=== PATIENT | female | born 1960 | race Caucasian/White ===

== ENCOUNTER 2017-05-22 23:21 | Inpatient (IN) | payer MEDICARE ==
[~2017-05-22] VITALS: Ht 167.6 cm; Wt 41.3 kg
[2017-05-22 23:30] VITALS: BP 139/87; PULSE 93; RESP 20; O2SAT 98
[2017-05-23] VITALS (13 sets, daily range): BP systolic 119–145; BP diastolic 57–82; PULSE 75–92; RESP 16–20; TEMP 96.6–99.1; O2SAT 75–97
[2017-05-23] MEDS ORDERED: ZOCO20TA PO (00:23)
[2017-05-23] MEDS ORDERED: MORP1TAB25 PO (00:23)
[2017-05-23] MEDS ORDERED: COLA100C5 PO (00:23)
[2017-05-23] MEDS ORDERED: DICY10CA12 PO (00:23)
[2017-05-23] MEDS ORDERED: CALC1TAB87 PO (00:23)
[2017-05-23] MEDS ORDERED: AMLO10 PO (00:23)
[2017-05-23] MEDS ORDERED: ZOLO100T PO (00:23)
[2017-05-23] MEDS ORDERED: GENT0.1C TOPICAL (00:23)
[2017-05-23] MEDS ORDERED: ASCO500T PO (00:23)
[2017-05-23] MEDS ORDERED: LACTTAB8 PO (00:23)
[2017-05-23] MEDS ORDERED: KLOR20TA3 PO (00:23)
[2017-05-23] MEDS ORDERED: MULTTAB67 PO (00:23)
[2017-05-23] MEDS ORDERED: NORC5TAB PO (00:23)
[2017-05-23] MEDS ORDERED: LISI-515 PO (00:23)
[2017-05-23] MEDS ORDERED: PROT40TA PO (00:23)
[2017-05-23] MEDS ORDERED: WELLTAB39 PO (00:23)
[2017-05-23] MEDS ORDERED: FERR325T18 PO (00:23)
[2017-05-23] MEDS ORDERED: XANA2TAB2 PO (00:23)
[2017-05-23] MEDS ORDERED: TRAZ1TAB14 PO (00:23)
[2017-05-23 00:48] LABS: AUTOMATED NEUTROPHIL # 2.2 TH/MM3 (1.8-7.7); BASOPHIL % 0.2 % (0.0-2.0); EOSINOPHIL % 0.2 % (0.0-4.0); HEMATOCRIT 25.1 % (35.0-46.0); HEMO FLAGS DIFF FINAL; LYMPH % 29.6 % (9.0-44.0); MEAN CELL VOLUME 75.8 FL (80.0-100.0); MEAN CORPUSCULAR HEMOGLOBIN 23.8 PG (27.0-34.0); MEAN CORPUSCULAR HGB CONC 31.4 % (32.0-36.0); MONO % 3.4 % (0.0-8.0); NEUT % 66.6 % (16.0-70.0); PLATELET COUNT 348 TH/MM3 (150-450); WHITE BLOOD COUNT 3.4 TH/MM3 (4.0-11.0)
[2017-05-23 00:53] LABS: APTT (PATIENT) 27.2 SEC (24.3-30.1); INTERNATIONAL NORMALIZED RATIO 1.1 RATIO; PROTHROMBIN TIME - PATIENT 10.7 SEC (9.8-11.6)
[2017-05-23 01:09] LABS: ANION GAP 4 MEQ/L (5-15); AST (GOT) 15 U/L (15-37); BICARBONATE 31.8 MEQ/L (21.0-32.0); BLOOD UREA NITROGEN 17 MG/DL (7-18); CHLORIDE 100 MEQ/L (98-107); GLOMERULAR FILTRATION RATE 208 ML/MIN (>89); POTASSIUM 4.9 MEQ/L (3.5-5.1); SODIUM (NA) 136 MEQ/L (136-145)
--- NOTE | 2017-05-23 01:10 | PD ---
HPI Chief Complaint: Abnormal Results Time Seen by Provider: 01:04 Travel History International Travel<30 days: No Contact w/Intl Traveler<30days: No Traveled to known affect area: No History of Present Illness HPI 56-year-old female sent to the emergency department from care home for evaluation and possible transfusion. Patient reportedly had a hemoglobin of 6.8 at the nursing facility prior to being transferred to the emergency department. Patient has had stroke and is bedbound due to right-sided hemiplegia. Patient denies any black or tarry stools. Patient is on no blood thinning agents according to patient. 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) Neurologic: Yes (Hemiparesis/hemiplegia to Right side) Integumentary: Yes (Pressure ulcers to R elbow, R ankle, and sacral region) Tetanus Vaccination: Unknown ?: Not Menopausal: Yes Past Surgical History Section: Yes Hysterectomy: Yes Other Surgery: Yes (Fibroid cyst removed) Social History Alcohol Use: No Tobacco Use: No Substance Use: No Allergies-Medications (Allergen,Severity, Reaction): Coded Allergies: No Known Allergies (Verified Allergy, Unknown, 05/22/17) Reported Meds & Prescriptions Reported Meds & Active Scripts Active Reported Gentamicin Topical 0.1% Cream 1 Applic TOPICAL DAILY Apply to affected area(s) Xanax (Alprazolam) 2 Mg Tab 2 Mg PO Q8H PRN [place] (Hydrocodone-Acetaminophen) 5 Mg-325 Mg Tab 1 Tab PO Q6H PRN Morphine ER (Morphine Sulfate) 30 Mg Tab 30 Mg PO Q8H Lactobacillus Acidophilus 1 Billion Cell Tab 1 Tab PO TIDAC Zoloft (Sertraline HCl) 100 Mg Tab 100 Mg PO BID Lisinopril 20 Mg Tab 20 Mg PO BID Klor-Con M20 (Potassium Chloride Microencaps) 20 Meq Tab 20 Meq PO Q12HR Dicyclomine (Dicyclomine HCl) 10 Mg Cap 10 Mg PO BID PRN Colace (Docusate Sodium) 100 Mg Capsule 1 Tab PO BID PRN Ascorbic Acid 500 Mg Tab 500 Mg PO BID Zocor (Simvastatin) 20 Mg Tab 20 Mg PO DAILY Wellbutrin Xl 24 HR (Bupropion HCl) 300 Mg Tab 300 Mg PO DAILY Trazodone (Trazodone HCl) 150 Mg Tablet 150 Mg PO HS Protonix (Pantoprazole Sodium) 40 Mg Tab 40 Mg PO DAILY Norvasc (Amlodipine Besylate) 10 Mg Tab 10 Mg PO DAILY Multiple Vitamin 1 Tab 1 Tab PO DAILY Ferrous Sulfate 325 Mg (65 Mg Iron) Tablet 325 Mg PO DAILY Calcium 600 with Vitamin D (Calcium Carbonate-Cholecalciferol) 600-400 mg-Unit Tab 1 Tab PO DAILY Review of Systems Except as stated in HPI: all other systems reviewed are Neg Physical Exam Narrative GENERAL: Thin elderly appearing female May she had in no acute distress no respiratory distress SKIN: Warm and dry. HEAD: Normocephalic. EYES: No scleral icterus. No injection or drainage. NECK: Supple, trachea midline. No JVD or lymphadenopathy. CARDIOVASCULAR: Regular rate and rhythm without murmurs, gallops, or rubs. RESPIRATORY: Breath sounds equal bilaterally. No accessory muscle use. GASTROINTESTINAL: Abdomen soft, non-tender, nondistended. MUSCULOSKELETAL: No cyanosis, or edema. BACK: Nontender without obvious deformity. No CVA tenderness. Data Data Last Documented VS Vital Signs Date Time Temp Pulse Resp B/P (MAP) Pulse Ox O2 Delivery O2 Flow Rate FiO2 05/23/17 00:01 99.0 05/22/17 23:42 99 Nasal Cannula 2.00 05/22/17 23:30 93 20 139/87 (104) Orders Orders Complete Blood Count With Diff (05/23/17 00:33) Comprehensive Metabolic Panel (05/23/17 00:33) Prothrombin Time / Inr (Pt) (05/23/17 00:33) Act Partial Throm Time (Ptt) (05/23/17 00:33) Ecg Monitoring (05/23/17 00:33) Oximetry (05/23/17 00:33) Oxygen Administration (05/23/17 00:33) Iv Access Insert/Monitor (05/23/17 00:33) Type And Screen (05/23/17 00:33) Red Blood Cells (Rbc) (05/23/17 00:05) Admit Order (Ed Use Only) (05/23/17 ) Vital Signs (Adult) Q4H (05/23/17 01:49) Activity Bed Rest (05/23/17 01:49) Notify Dr: Other (05/23/17 01:49) Labs Laboratory Tests Test 05/23/17 00:05 White Blood Count 3.4 TH/MM3 Red Blood Count 3.30 MIL/MM3 Hemoglobin 7.9 GM/DL Hematocrit 25.1 % Mean Corpuscular Volume 75.8 FL Mean Corpuscular Hemoglobin 23.8 PG Mean Corpuscular Hemoglobin Concent 31.4 % Red Cell Distribution Width 19.0 % Platelet Count 348 TH/MM3 Mean Platelet Volume 7.3 FL Neutrophils (%) (Auto) 66.6 % Lymphocytes (%) (Auto) 29.6 % Monocytes (%) (Auto) 3.4 % Eosinophils (%) (Auto) 0.2 % Basophils (%) (Auto) 0.2 % Neutrophils # (Auto) 2.2 TH/MM3 Lymphocytes # (Auto) 1.0 TH/MM3 Monocytes # (Auto) 0.1 TH/MM3 Eosinophils # (Auto) 0.0 TH/MM3 Basophils # (Auto) 0.0 TH/MM3 CBC Comment DIFF FINAL Differential Comment Prothrombin Time 10.7 SEC Prothromb Time International Ratio 1.1 RATIO Activated Partial Thromboplast Time 27.2 SEC Blood Urea Nitrogen 17 MG/DL Creatinine 0.33 MG/DL Random Glucose 89 MG/DL Total Protein 6.8 GM/DL Albumin 2.3 GM/DL Calcium Level 8.9 MG/DL Alkaline Phosphatase 91 U/L Aspartate Amino Transf (AST/SGOT) 15 U/L Alanine Aminotransferase (ALT/SGPT) 12 U/L Total Bilirubin 0.2 MG/DL Sodium Level 136 MEQ/L Potassium Level 4.9 MEQ/L Chloride Level 100 MEQ/L Carbon Dioxide Level 31.8 MEQ/L Anion Gap 4 MEQ/L Estimat Glomerular Filtration Rate 208 ML/MIN [facility] Medical Decision Making Medical Screen Exam Complete: Yes Emergency Medical Condition: Yes Medical Record Reviewed: Yes Interpretation(s) CBC & BMP Diagram 05/23/17 00:05 Total Protein 6.8, Albumin 2.3 L, Calcium Level 8.9, Alkaline Phosphatase 91, Aspartate Amino Transf (AST/SGOT) 15, Alanine Aminotransferase (ALT/SGPT) 12, Total Bilirubin 0.2 Vital Signs Date Time Temp Pulse Resp B/P (MAP) Pulse Ox O2 Delivery O2 Flow Rate FiO2 12/15/17 00:01 99.0 05/22/17 23:42 99 Nasal Cannula 2.00 05/22/17 23:30 93 20 139/87 (104) 98 Differential Diagnosis Anemia anemia of chronic disease GI bleed Narrative Course IV access obtained specimens collected and sent for resulting Hemoglobin 7.9 labs discussed with [place] for Dr Ocampo --knows patient well will obs for repeat hgb Physician Communication Physician Communication call placed to Dr Benedict service --discussed with [place] --knows patient --obs to Dr Ocampo Diagnosis Primary Impression: Anemia Palmira Garcia MD May 23, 2017 01:10
[2017-05-23 01:12] LABS: ALKALINE PHOSPHATASE 91 U/L (45-117); ALT (GPT) 12 U/L (10-53); TOTAL BILIRUBIN ADULT 0.2 MG/DL (0.2-1.0)
[2017-05-23] MEDS ORDERED: ACETAMINOPHEN 325 MG TAB PO PRN (02:00)
[2017-05-23] MEDS ORDERED: NALOXONE HCL 0.4 MG/ML AMP IV PUSH PRN (02:00)
[2017-05-23] MEDS ORDERED: ONDANSETRON HCL 4 MG/2 ML VIAL IVP PRN (02:00)
[2017-05-23] MEDS ORDERED: MAGNESIUM HYDROXIDE SUSP 30 ML CUP PO PRN (02:00)
[2017-05-23] MEDS ORDERED: DICYCLOMINE HCL 10 MG CAP PO PRN (02:00)
[2017-05-23] MEDS ORDERED: SODIUM CHLORIDE 0.9% FLUSH 10 ML FLUSH IV FLUSH PRN (02:00)
[2017-05-23] MEDS ORDERED: BISACODYL 10 MG SUPP RECTAL PRN (02:00)
[2017-05-23] MEDS ORDERED: LACTULOSE SYRUP 20 GM/30 ML CUP PO PRN (02:00)
[2017-05-23] MEDS ORDERED: DOCUSATE SODIUM 100 MG CAP PO PRN (02:00)
[2017-05-23] MEDS ORDERED: SENNOSIDES 8.6 MG TAB PO PRN (02:00)
[2017-05-23] MEDS: MORPHINE SULFATE 30 MG CONTROLLED RELEASE TAB PO SCH ×3 (06:27→21:36)
[2017-05-23 07:41] LABS: HEMATOCRIT 21.8 % (35.0-46.0); MEAN CELL VOLUME 75.4 FL (80.0-100.0); MEAN CORPUSCULAR HEMOGLOBIN 24.6 PG (27.0-34.0); MEAN CORPUSCULAR HGB CONC 32.6 % (32.0-36.0); PLATELET COUNT 305 TH/MM3 (150-450); RED BLOOD COUNT 2.89 MIL/MM3 (4.00-5.30); RED CELL DISTRIBUTION WIDTH 18.4 % (11.6-17.2); REVIEW FLAG FINAL; WHITE BLOOD COUNT 2.9 TH/MM3 (4.0-11.0)
[2017-05-23 08:05] LABS: FERRITIN 801 NG/ML (8-252); TRANSFERRIN IRON PROFILE 97 MG/DL (200-360)
[2017-05-23] MEDS: GENTAMICIN SULFATE 0.1% CREAM 15 GM TOPICAL SCH (09:00)
[2017-05-23] MEDS: ASCORBIC ACID 500 MG TAB PO SCH ×2 (09:58→21:35)
[2017-05-23] MEDS: FERROUS SULFATE 325 MG (65 MG ELEMENTAL IRON) TAB PO SCH (09:58)
[2017-05-23] MEDS: POTASSIUM CHLORIDE 20 MEQ CONTROLLED RELEASE TAB PO SCH ×2 (09:59→21:34)
[2017-05-23] MEDS: DOCUSATE SODIUM 50 MG/SENNA 8.6 MG TAB PO SCH ×2 (09:59→21:35)
[2017-05-23] MEDS: SERTRALINE HCL 100 MG TAB PO SCH ×2 (09:59→21:33)
[2017-05-23] MEDS: buPROPion HCL 150 MG SUSTAINED RELEASE TAB PO SCH (10:04)
[2017-05-23] MEDS: LISINOPRIL 20 MG TAB PO SCH ×2 (10:05→21:34)
[2017-05-23] MEDS: MULTIVITAMIN TAB PO SCH (10:05)
[2017-05-23] MEDS: PANTOPRAZOLE SOD 40 MG DELAYED RELEASE TAB PO SCH (10:05)
[2017-05-23] MEDS: SODIUM CHLORIDE 0.9% FLUSH 10 ML FLUSH IV FLUSH SCH ×2 (10:06→21:00)
[2017-05-23] MEDS: LACTOBACILLUS ACIDOPHILUS TAB PO SCH ×3 (10:06→20:25)
[2017-05-23] MEDS: CALCIUM/VITAMIN D 250 MG/125 U TAB PO SCH (10:07)
[2017-05-23] MEDS ORDERED: SODIUM CHLOR 0.9% 250 ML INJ 250 ML IV ONE (12:00)
--- NOTE | 2017-05-23 12:11 | HHI.HP ---
History of Present Illness Service Medicine Primary Care Physician Unknown Admission Diagnosis anemia Diagnoses: (1) Anemia History of Present Illness 56-year-old female [facility] possible transfusion. Patient reportedly had a hemoglobin of 6.8 at the nursing facility prior to being transferred to the emergency department. Patient has had stroke and is bedbound due to right-sided hemiplegia. Patient denies any black or tarry stools. Patient is on no blood thinning agents. Patient was also admitted in April for anemia and had work per GI and hematology. Recommendation from hematology is to transfuse as needed. Review of Systems Constitutional: COMPLAINS OF: Fatigue Respiratory: DENIES: Cough, Wheezing, Sputum production, Shortness of breath Cardiovascular: DENIES: Chest pain, Palpitations, Dyspnea on Exertion, Lower Extremity Edema Gastrointestinal: DENIES: Abdominal pain, Black stools, Bloody stools, Constipation Psychiatric: COMPLAINS OF: Depression Past Family Social History Allergies: Coded Allergies: No Known Allergies (Verified Allergy, Unknown, 05/22/17) Past Medical History CVA, [place], chronic anemia, lupus, porphyria and back and neck pain Past Surgical History coccyx surgery c section hernia repair hysterectomy Active Ordered Medications Current Medications Medications (Trade) Dose Ordered Sig/Lynda Route Start Time Stop Time Status Last Admin (NS Flush) 2 ml UNSCH PRN IV FLUSH 05/23/17 02:00 (NS Flush) 2 ml BID IV FLUSH 05/23/17 09:00 05/23/17 10:06 (Tylenol) 650 mg Q4H PRN PO 05/23/17 02:00 (Zofran Inj) 4 mg Q6H PRN IVP 05/23/17 02:00 (Narcan Inj) 0.4 mg UNSCH PRN IV PUSH 05/23/17 02:00 ([place]-Colace) 1 tab BID PO 05/23/17 09:00 05/23/17 09:59 (Milk Of Magnesia Liq) 30 ml Q12H PRN PO 05/23/17 02:00 (Senokot) 17.2 mg Q12H PRN PO 05/23/17 02:00 (Dulcolax Supp) 10 mg DAILY PRN RECTAL 05/23/17 02:00 (Lactulose Liq) 30 ml DAILY PRN PO 05/23/17 02:00 (Xanax) 2 mg Q8H PRN PO 05/23/17 02:00 (Norvasc) 10 mg DAILY PO 05/23/17 09:00 05/23/17 10:04 (Vitamin C) 500 mg BID PO 05/23/17 09:00 05/23/17 09:58 (Wellbutrin Sr) 300 mg DAILY PO 05/23/17 09:00 05/23/17 10:04 (Oscal-D 250-125) 1 mg DAILY PO 05/23/17 09:00 05/23/17 10:07 (Bentyl) 10 mg BID PRN PO 05/23/17 02:00 (Colace) 100 mg BID PRN PO 05/23/17 02:00 (Ferrous Sulfate) 325 mg DAILY PO 05/23/17 09:00 05/23/17 09:58 (Gentamicin 0.1% Cream) 1 applic DAILY TOPICAL 05/23/17 09:00 ([place] 5-325 Mg) 1 tab Q6H PRN PO 05/23/17 02:00 (Lactinex) 1 tab TIDAC PO 05/23/17 08:00 05/23/17 10:06 (Prinivil) 20 mg BID PO 05/23/17 09:00 05/23/17 10:05 (Oramorph Sr) 30 mg Q8HR PO 05/23/17 06:00 05/23/17 06:27 (Protonix) 40 mg DAILY PO 05/23/17 09:00 05/23/17 10:05 (KCl) 20 meq Q12HR PO 05/23/17 09:00 05/23/17 09:59 (Zoloft) 100 mg BID PO 05/23/17 09:00 05/23/17 09:59 (Theragran) 1 tab DAILY PO 05/23/17 09:00 05/23/17 10:05 (Pravachol) 40 mg HS PO 05/23/17 21:00 (Desyrel) 150 mg HS PO 05/23/17 21:00 Sodium Chloride 250 ml @ 15 mls/hr ONCE ONCE IV 05/23/17 12:00 05/24/17 04:39 UNV (Lasix Inj) 20 mg ONCE ONCE IV PUSH 05/23/17 12:00 05/23/17 12:01 UNV Social History [facility] Physical Exam Vital Signs Vital Signs Date Time Temp Pulse Resp B/P (MAP) Pulse Ox O2 Delivery O2 Flow Rate FiO2 05/23/17 11:07 96.7 86 16 121/57 (78) 96 05/23/17 07:28 96.6 84 20 119/66 (83) 95 05/23/17 05:50 98.9 92 18 131/82 (98) 95 05/23/17 00:01 99.0 05/22/17 23:42 99 Nasal Cannula 2.00 05/22/17 23:30 93 20 139/87 (104) 98 Physical Exam GENERAL: alert and cooperative SKIN: Warm and dry. Wound right ankle HEAD: Normocephalic. EYES: No scleral icterus. No injection or drainage. NECK: Supple, trachea midline. No JVD or lymphadenopathy. CARDIOVASCULAR: Regular rate and rhythm without murmurs, gallops, or rubs. RESPIRATORY: Breath sounds equal bilaterally. No accessory muscle use. GASTROINTESTINAL: Abdomen soft, non-tender, nondistended. MUSCULOSKELETAL: No cyanosis, or edema. BACK: Nontender without obvious deformity. No CVA tenderness. Laboratory Laboratory Tests Test 05/23/17 00:05 05/23/17 06:18 05/23/17 06:48 White Blood Count 3.4 2.9 Red Blood Count 3.30 2.89 Hemoglobin 7.9 7.1 Hematocrit 25.1 21.8 Mean Corpuscular Volume 75.8 75.4 Mean Corpuscular Hemoglobin 23.8 24.6 Mean Corpuscular Hemoglobin Concent 31.4 32.6 Red Cell Distribution Width 19.0 18.4 Platelet Count 348 305 Mean Platelet Volume 7.3 7.3 Neutrophils (%) (Auto) 66.6 Lymphocytes (%) (Auto) 29.6 Monocytes (%) (Auto) 3.4 Eosinophils (%) (Auto) 0.2 Basophils (%) (Auto) 0.2 Neutrophils # (Auto) 2.2 Lymphocytes # (Auto) 1.0 Monocytes # (Auto) 0.1 Eosinophils # (Auto) 0.0 Basophils # (Auto) 0.0 CBC Comment DIFF FINAL Differential Comment Prothrombin Time 10.7 Prothromb Time International Ratio 1.1 Activated Partial Thromboplast Time 27.2 Blood Urea Nitrogen 17 Creatinine 0.33 Random Glucose 89 Total Protein 6.8 Albumin 2.3 Calcium Level 8.9 Alkaline Phosphatase 91 Aspartate Amino Transf (AST/SGOT) 15 Alanine Aminotransferase (ALT/SGPT) 12 Total Bilirubin 0.2 Sodium Level 136 Potassium Level 4.9 Chloride Level 100 Carbon Dioxide Level 31.8 Anion Gap 4 Estimat Glomerular Filtration Rate 208 Haptoglobin 245 Iron Level 12 Total Iron Binding Capacity 136 Percent Iron Saturation 8.8 Ferritin 801 Vitamin B12 Level 310 Folate 10.0 Reticulocyte Count 1.0 Absolute Reticulocyte Count 28.0 Result Diagram: 05/23/17 0648 05/23/17 0005 Caprini VTE Risk Assessment Caprini VTE Risk Assessment: Mod/High Risk (score >= 2) Caprini Risk Assessment Model Point Value = 1 Point Value = 2 Point Value = 3 Point Value = 5 Age 41-60 Minor surgery BMI > 25 kg/m2 Swollen legs Varicose veins or History of unexplained or recurrent spontaneous Oral contraceptives or hormone replacement Sepsis (< 1 month) Serious lung disease, including pneumonia (< 1 month) Abnormal pulmonary function Acute myocardial infarction Congestive heart failure (< 1 month) History of inflammatory bowel disease Medical patient at bed rest Age 61-74 Arthroscopic surgery Major open surgery (> 45 min) Laparoscopic surgery (> 45 min) Malignancy Confined to bed (> 72 hours) Immobilizing plaster cast Central venous access Age >= 75 History of VTE Family history of VTE Factor V Leiden Prothrombin [id number] Lupus anticoagulant Anticardiolipin antibodies Elevated serum homocysteine Heparin-induced thrombocytopenia Other congenital or acquired thrombophilia Stroke (< 1 month) Elective arthroplasty Hip, pelvis, or leg fracture Acute spinal cord injury (< 1 month) Prophylaxis Regimen Total Risk Factor Score Risk Level Prophylaxis Regimen 0-1 Low Early ambulation 2 Moderate Order ONE of the following: *Sequential Compression Device (SCD) *Heparin 5000 units SQ BID 3-4 Higher Order ONE of the following medications: *Heparin 5000 units SQ TID *Enoxaparin/Lovenox 40 mg SQ daily (WT < 150 kg, CrCl > 30 mL/min) *Enoxaparin/Lovenox 30 mg SQ daily (WT < 150 kg, CrCl > 10-29 mL/min) *Enoxaparin/Lovenox 30 mg SQ BID (WT < 150 kg, CrCl > 30 mL/min) AND/OR *Sequential Compression Device (SCD) 5 or more Highest Order ONE of the following medications: *Heparin 5000 units SQ TID (Preferred with Epidurals) *Enoxaparin/Lovenox 40 mg SQ daily (WT < 150 kg, CrCl > 30 mL/min) *Enoxaparin/Lovenox 30 mg SQ daily (WT < 150 kg, CrCl > 10-29 mL/min) *Enoxaparin/Lovenox 30 mg SQ BID (WT < 150 kg, CrCl > 30 mL/min) AND *Sequential Compression Device (SCD) Assessment and Plan Problem List: (1) Anemia ICD Codes: D64.9 - Anemia, unspecified Status: Acute (2) HLD (hyperlipidemia) ICD Codes: E78.5 - Hyperlipidemia, unspecified (3) Depression ICD Codes: F32.9 - Major depressive disorder, single episode, unspecified Assessment and Plan 05/23/17 Anemia: HGB at [facility] re[facility] at 6.8. At hospital 7.9 and this morning 7.1 will transfuse 2 units of PRBC's. Has had bone marrow biopsy in past. Recommendations is to transfuse PRBC as needed HTN: Continue lisinopril blood pressure well controlled HLD: Continue Zocor Depression: continue Zoloft, trazodone, and Wellbutrin GERD; Continue protonix plan for labs in AM and [facility] May 23, 2017 12:11
[2017-05-23] MEDS ORDERED: FUROSEMIDE 20 MG/2 ML VIAL IV PUSH ONE (14:00)
[2017-05-23] MEDS: ALPRAZolam 1 MG TAB PO PRN (15:37)
--- NOTE | 2017-05-23 16:05 | PD.WCN.NOT ---
Wound Consult Description: Patient seen for evaluation of pressure ulcer to coccyx from [facility]. 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 Please change dressing daily and apply skin prep to periwound before applying ABD and securing with tape. 2. Cleanse healing stage 4 pressure injury to R ankle with normal saline and pat dry. Apply Optifoam gentle dressing to over wound and change every 3 days or PRN if saturated or dislodged 3. Continue to turn patient every 2 hours and PRN comfort and to offload pressure from sacral area. 4. Patient may need multipodus boot for R foot to keep foot from externally rotating and placing pressure on R ankle wound. 5. Please refer patient to out patient wound care center for follow up of stage 4 pressure injuries 6. If patient is admitted please obtain WAVE bed. Additional Information: Patient seen on H pod CDU around 1500 for wound management of coccyx and R ankle areas.Patient turned to the R side with the assistance of Gina HEALY CDU H pod and designer writer, Removed adhesive foam dressing in place to reveal wound to sacrococcygeal area. Wound presents with ~20% yellow adherent slough, ~20% pink tissue, ~30% muscle tissue, ~20% facia, 10% bone Cleansed wound with normal saline and pat dry. Wound has an oval shape with well defined steep wound margins that are unattached. Epibole is noted between 12 and 6 o'clock. Wound measures 4.2cm x 2 cm x 1cm Undermining is assessed as circumferential, deepest at 3 o'clock measuring 2.8cm. Presence of facia, bone and mucles that is visible in wound bed indicates stage IV pressure injury.Wound is present on admission, patient came from the [facility] per RN.Wound drainage is moderate and sero-sanguinous, without odor. Periwound presents with blanchable moisture related erythema.Packed wound with Calcium Alginate (Maxorb II) and covered wound with ABD pad secured with paper tape. Skin prep applied to periwound and before securing dressing to skin with paper tape.Repositioned patient for wound assessment of R ankle wound. Removed dressing in place to R lateral ankle to reveal stage IV pressure injury to R lateral malleolus. Wound presents with yellow slough, ~80% pink tissue and ~20% white tissue at the base. Wound measures ~1 cm x ~0.6cm x ~0.2cm. Wound drainage is scant and sero-sanguinous without odor. Periwound is unremarkable. Wound margins are steep, well defined and attached. Cleansed wound with normal saline and pat dry. dry 4x4 gauze pad over wound until supplies can be obtained Positioned patient to L side with pillow in place for support. Pillow in place under feet to offload pressure from heels and ankle.Wound care recommendations are noted above. Antonieta Murcia CRN May 23, 2017 16:05
[2017-05-23] MEDS: COLLAGENASE OINT 30 GM TUBE TOPICAL SCH (16:45)
[2017-05-23] MEDS: traZODone HCL 50 MG TAB PO SCH (21:34)
[2017-05-23] MEDS: PRAVASTATIN SOD 40 MG TAB PO SCH (21:34)
[2017-05-24] VITALS: BP 143/74; PULSE 79; RESP 16; TEMP 97.9
[2017-05-24 02:20] VITALS: BP 147/82; PULSE 84; RESP 16; TEMP 98.9; O2SAT 93
[2017-05-24 03:22] VITALS: BP 146/90; PULSE 88; RESP 18; TEMP 99.1; O2SAT 94
[2017-05-24] MEDS: MORPHINE SULFATE 30 MG CONTROLLED RELEASE TAB PO SCH ×3 (06:19→20:54)
[2017-05-24] MEDS: ALPRAZolam 1 MG TAB PO PRN ×2 (06:24→20:53)
[2017-05-24 07:18] LABS: AUTOMATED NEUTROPHIL # 3.4 TH/MM3 (1.8-7.7); BASOPHIL % 0.3 % (0.0-2.0); EOSINOPHIL % 0.3 % (0.0-4.0); HEMATOCRIT 35.3 % (35.0-46.0); HEMO FLAGS DIFF FINAL; LYMPH % 20.4 % (9.0-44.0); LYMPHOCYTE # 0.9 TH/MM3 (1.0-4.8); MEAN CORPUSCULAR HEMOGLOBIN 25.3 PG (27.0-34.0); MEAN CORPUSCULAR HGB CONC 32.9 % (32.0-36.0); MONO % 5.8 % (0.0-8.0); NEUT % 73.2 % (16.0-70.0); PLATELET COUNT 306 TH/MM3 (150-450); RED BLOOD COUNT 4.59 MIL/MM3 (4.00-5.30); RED CELL DISTRIBUTION WIDTH 16.8 % (11.6-17.2); WHITE BLOOD COUNT 4.7 TH/MM3 (4.0-11.0)
[2017-05-24 07:54] LABS: ALKALINE PHOSPHATASE 89 U/L (45-117); ALT (GPT) 9 U/L (10-53); ANION GAP 8 MEQ/L (5-15); AST (GOT) 16 U/L (15-37); BICARBONATE 28.2 MEQ/L (21.0-32.0); BLOOD UREA NITROGEN 12 MG/DL (7-18); CHLORIDE 99 MEQ/L (98-107); GLOMERULAR FILTRATION RATE 188 ML/MIN (>89); POTASSIUM 4.1 MEQ/L (3.5-5.1); SODIUM (NA) 135 MEQ/L (136-145); TOTAL BILIRUBIN ADULT 0.4 MG/DL (0.2-1.0)
[2017-05-24 08:17] VITALS: BP 175/90; PULSE 93; RESP 18; TEMP 99.8; O2SAT 96
[2017-05-24] MEDS: GENTAMICIN SULFATE 0.1% CREAM 15 GM TOPICAL SCH (09:00)
--- NOTE | 2017-05-24 09:11 | HHI.PR ---
Subjective Remarks pt has been transfused hgb now 11 still weak and a fall risk lives alone will need pt eval and rx for gait stability and dc to snf for further rx Objective Vital Signs Date Time Temp Pulse Resp B/P (MAP) Pulse Ox O2 Delivery O2 Flow Rate FiO2 05/24/17 08:17 99.8 93 18 175/90 (118) 96 05/24/17 03:22 99.1 88 18 146/90 (108) 94 05/24/17 02:20 98.9 84 16 147/82 93 05/24/17 00:00 97.9 79 16 143/74 05/23/17 23:41 97.8 82 18 142/74 97 05/23/17 22:42 15 05/23/17 20:11 97.6 87 16 138/70 85 05/23/17 19:56 99.1 85 17 138/70 95 05/23/17 18:06 75 16 145/72 75 05/23/17 16:54 76 16 134/70 05/23/17 16:02 97.0 80 16 137/66 (89) 95 05/23/17 15:43 96.7 83 18 133/67 94 05/23/17 15:19 97.8 87 18 134/66 96 05/23/17 14:46 97.3 86 16 130/74 95 05/23/17 11:07 96.7 86 16 121/57 (78) 96 I/O 05/23/17 05/23/17 05/23/17 05/24/17 05/24/17 05/24/17 07:00 15:00 23:00 07:00 15:00 23:00 Intake Total 2560 ml Output Total 350 ml 1500 ml Balance -350 ml 1060 ml Intake Oral 320 ml IV Total 1575 ml Packed Cells 400 ml Blood Product IV Normal Saline Flush 265 ml Output Urine Total 350 ml 1500 ml Result Diagram: 05/24/17 0650 05/24/17 0650 Imaging Inpatient Medications Acetaminophen (Tylenol) 650 mg Q4H PRN PO TEMP > 100.4; Start 05/23/17 at 02: 00 Acetaminophen/ Hydrocodone Bitart ([place] 5-325 Mg) 1 tab Q6H PRN PO PAIN 1-10 ; Start 05/23/17 at 02:00 Alprazolam (Xanax) 2 mg Q8H PRN PO ANXIETY Last administered on 05/24/17 06: 24; Start 05/23/17 at 02:00 Amlodipine Besylate (Norvasc) 10 mg DAILY PO Last administered on 05/23/17 10 :04; Start 05/23/17 at 09:00 Ascorbic Acid (Vitamin C) 500 mg BID PO Last administered on 05/23/17 21:35; Start 05/23/17 at 09:00 Bisacodyl (Dulcolax Supp) 10 mg DAILY PRN RECTAL SEVERE CONSITIPATION; Start 05/23/17 at 02:00 Bupropion HCl (Wellbutrin Sr) 300 mg DAILY PO Last administered on 05/23/17 10:04; Start 05/23/17 at 09:00 Calcium/Vitamin D (Oscal-D 250-125) 1 mg DAILY PO Last administered on 10:07; Start 05/23/17 at 09:00 Collagenase (Santyl Oint) 1 applic DAILY TOPICAL ; Start 05/23/17 at 16:45 Dicyclomine HCl (Bentyl) 10 mg BID PRN PO Bowel Management; Start 05/23/17 at 02:00 Docusate Sodium (Colace) 100 mg BID PRN PO CONSTIPATION; Start 05/23/17 at 02: 00 Ferrous Sulfate (Ferrous Sulfate) 325 mg DAILY PO Last administered on 09:58; Start 05/23/17 at 09:00 Furosemide (Lasix Inj) 20 mg ONCE ONCE IV PUSH Last administered on 19:30; Start 05/23/17 at 14:00; Stop 05/23/17 at 14:01; Status DC Gentamicin Sulfate (Gentamicin 0.1% Cream) 1 applic DAILY TOPICAL ; Start 05/23 at 09:00 Lactobacillus Acidophilus (Lactinex) 1 tab TIDAC PO Last administered on 20:25; Start 05/23/17 at 08:00 Lactulose (Lactulose Liq) 30 ml DAILY PRN PO SEVERE CONSITIPATION; Start 05/23 at 02:00 Lisinopril (Prinivil) 20 mg BID PO Last administered on 05/23/17 21:34; Start 05/23/17 at 09:00 Magnesium Hydroxide (Milk Of Magnesia Liq) 30 ml Q12H PRN PO Mild constipation ; Start 05/23/17 at 02:00 Morphine Sulfate (Oramorph Sr) 30 mg Q8HR PO Last administered on 05/24/17 06 :19; Start 05/23/17 at 06:00 Multivitamins (Theragran) 1 tab DAILY PO Last administered on 05/23/17 10:05 ; Start 05/23/17 at 09:00 Naloxone HCl (Narcan Inj) 0.4 mg UNSCH PRN IV PUSH SEE LABEL COMMENTS; Start 05/23/17 at 02:00 Ondansetron HCl (Zofran Inj) 4 mg Q6H PRN IVP NAUSEA OR VOMITING; Start at 02:00 Pantoprazole Sodium (Protonix) 40 mg DAILY PO Last administered on 05/23/17 10:05; Start 05/23/17 at 09:00 Potassium Chloride (KCl) 20 meq Q12HR PO Last administered on 05/23/17 21:34 ; Start 05/23/17 at 09:00 Pravastatin Sodium (Pravachol) 40 mg HS PO Last administered on 05/23/17 21: 34; Start 05/23/17 at 21:00 Senna/Docusate Sodium (Santa-Colace) 1 tab BID PO Last administered on 21:35; Start 05/23/17 at 09:00 Sennosides (Senokot) 17.2 mg Q12H PRN PO Moderate constipation; Start at 02:00 Sertraline HCl (Zoloft) 100 mg BID PO Last administered on 05/23/17 21:33; Start 05/23/17 at 09:00 Sodium Chloride 250 ml @ 15 mls/hr ONCE ONCE IV Last administered on 15:42; Start 05/23/17 at 12:00; Stop 05/24/17 at 04:39; Status DC Sodium Chloride (NS Flush) 2 ml BID IV FLUSH Last administered on 05/23/17 10 :06; Start 05/23/17 at 09:00 Trazodone HCl (Desyrel) 150 mg HS PO Last administered on 05/23/17 21:34; Start 05/23/17 at 21:00 Objective Remarks GENERALfrail white female patient. SKIN: Warm and dry. HEAD: Normocephalic. EYES: No scleral icterus. No injection or drainage. NECK: Supple, trachea midline. No JVD or lymphadenopathy. CARDIOVASCULAR: Regular rate and rhythm without murmurs, gallops, or rubs. RESPIRATORY: Breath sounds equal bilaterally. No accessory muscle use. GASTROINTESTINAL: Abdomen soft, non-tender, nondistended. EXTREMITIES: No cyanosis, or edema.r hemiparesis present NEUROLOGICAL: Awake, alert, and oriented x 3. Non-focal. Medications and IVs Inpatient Medications Acetaminophen (Tylenol) 650 mg Q4H PRN PO TEMP > 100.4; Start 05/23/17 at 02: 00 Acetaminophen/ Hydrocodone Bitart ([place] 5-325 Mg) 1 tab Q6H PRN PO PAIN 1-10 ; Start 05/23/17 at 02:00 Alprazolam (Xanax) 2 mg Q8H PRN PO ANXIETY Last administered on 05/24/17 06: 24; Start 05/23/17 at 02:00 Amlodipine Besylate (Norvasc) 10 mg DAILY PO Last administered on 05/23/17 10 :04; Start 05/23/17 at 09:00 Ascorbic Acid (Vitamin C) 500 mg BID PO Last administered on 05/23/17 21:35; Start 05/23/17 at 09:00 Bisacodyl (Dulcolax Supp) 10 mg DAILY PRN RECTAL SEVERE CONSITIPATION; Start 05/23/17 at 02:00 Bupropion HCl (Wellbutrin Sr) 300 mg DAILY PO Last administered on 05/23/17 10:04; Start 05/23/17 at 09:00 Calcium/Vitamin D (Oscal-D 250-125) 1 mg DAILY PO Last administered on 10:07; Start 05/23/17 at 09:00 Collagenase (Santyl Oint) 1 applic DAILY TOPICAL ; Start 05/23/17 at 16:45 Dicyclomine HCl (Bentyl) 10 mg BID PRN PO Bowel Management; Start 05/23/17 at 02:00 Docusate Sodium (Colace) 100 mg BID PRN PO CONSTIPATION; Start 05/23/17 at 02: 00 Ferrous Sulfate (Ferrous Sulfate) 325 mg DAILY PO Last administered on 09:58; Start 05/23/17 at 09:00 Furosemide (Lasix Inj) 20 mg ONCE ONCE IV PUSH Last administered on 19:30; Start 05/23/17 at 14:00; Stop 05/23/17 at 14:01; Status DC Gentamicin Sulfate (Gentamicin 0.1% Cream) 1 applic DAILY TOPICAL ; Start 05/23 at 09:00 Lactobacillus Acidophilus (Lactinex) 1 tab TIDAC PO Last administered on 20:25; Start 05/23/17 at 08:00 Lactulose (Lactulose Liq) 30 ml DAILY PRN PO SEVERE CONSITIPATION; Start 05/23 at 02:00 Lisinopril (Prinivil) 20 mg BID PO Last administered on 05/23/17 21:34; Start 05/23/17 at 09:00 Magnesium Hydroxide (Milk Of Magnesia Liq) 30 ml Q12H PRN PO Mild constipation ; Start 05/23/17 at 02:00 Morphine Sulfate (Oramorph Sr) 30 mg Q8HR PO Last administered on 05/24/17 06 :19; Start 05/23/17 at 06:00 Multivitamins (Theragran) 1 tab DAILY PO Last administered on 05/23/17 10:05 ; Start 05/23/17 at 09:00 Naloxone HCl (Narcan Inj) 0.4 mg UNSCH PRN IV PUSH SEE LABEL COMMENTS; Start 05/23/17 at 02:00 Ondansetron HCl (Zofran Inj) 4 mg Q6H PRN IVP NAUSEA OR VOMITING; Start at 02:00 Pantoprazole Sodium (Protonix) 40 mg DAILY PO Last administered on 05/23/17 10:05; Start 05/23/17 at 09:00 Potassium Chloride (KCl) 20 meq Q12HR PO Last administered on 05/23/17 21:34 ; Start 05/23/17 at 09:00 Pravastatin Sodium (Pravachol) 40 mg HS PO Last administered on 05/23/17 21: 34; Start 05/23/17 at 21:00 Senna/Docusate Sodium (Santa-Colace) 1 tab BID PO Last administered on 21:35; Start 05/23/17 at 09:00 Sennosides (Senokot) 17.2 mg Q12H PRN PO Moderate constipation; Start at 02:00 Sertraline HCl (Zoloft) 100 mg BID PO Last administered on 05/23/17 21:33; Start 05/23/17 at 09:00 Sodium Chloride 250 ml @ 15 mls/hr ONCE ONCE IV Last administered on 15:42; Start 05/23/17 at 12:00; Stop 05/24/17 at 04:39; Status DC Sodium Chloride (NS Flush) 2 ml BID IV FLUSH Last administered on 05/23/17 10 :06; Start 05/23/17 at 09:00 Trazodone HCl (Desyrel) 150 mg HS PO Last administered on 05/23/17 21:34; Start 05/23/17 at 21:00 Assessment and Plan Problem List: (1) Debility ICD Codes: R53.81 - Other malaise Plan: pt eval and rx with SNF placement (2) Anemia ICD Codes: D64.9 - Anemia, unspecified Status: Acute Plan: transfuse as needed Assessment and Plan debility anemia r hemiparesis pt eval and rx with snf placement Discussed Condition With patient DamarisFarhat Epi SOL May 24, 2017 09:11
[2017-05-24] MEDS: SERTRALINE HCL 100 MG TAB PO SCH ×2 (10:37→20:53)
[2017-05-24] MEDS: DOCUSATE SODIUM 50 MG/SENNA 8.6 MG TAB PO SCH ×2 (10:37→20:54)
[2017-05-24] MEDS: PANTOPRAZOLE SOD 40 MG DELAYED RELEASE TAB PO SCH (10:38)
[2017-05-24] MEDS: MULTIVITAMIN TAB PO SCH (10:38)
[2017-05-24] MEDS: FERROUS SULFATE 325 MG (65 MG ELEMENTAL IRON) TAB PO SCH (10:39)
[2017-05-24] MEDS: LISINOPRIL 20 MG TAB PO SCH ×2 (10:39→20:53)
[2017-05-24] MEDS: LACTOBACILLUS ACIDOPHILUS TAB PO SCH ×3 (10:39→18:12)
[2017-05-24] MEDS: buPROPion HCL 150 MG SUSTAINED RELEASE TAB PO SCH (10:39)
[2017-05-24] MEDS: ASCORBIC ACID 500 MG TAB PO SCH ×2 (10:40→20:54)
[2017-05-24] MEDS: CALCIUM/VITAMIN D 250 MG/125 U TAB PO SCH (10:40)
[2017-05-24] MEDS: POTASSIUM CHLORIDE 20 MEQ CONTROLLED RELEASE TAB PO SCH ×2 (10:40→20:54)
[2017-05-24] MEDS: COLLAGENASE OINT 30 GM TUBE TOPICAL SCH ×2 (10:42→12:37)
[2017-05-24 10:57] LABS: FREE T3 1.74 PG/ML (2.18-3.98)
[2017-05-24] MEDS: SODIUM CHLORIDE 0.9% FLUSH 10 ML FLUSH IV FLUSH SCH ×2 (14:47→20:53)
[2017-05-24 16:06] VITALS: BP 184/99; PULSE 93; RESP 24; TEMP 97.8; O2SAT 93
[2017-05-24 18:50] LABS: BACTERIA, URINE RARE /hpf; BLOOD, URINE MOD (NEG); COMMENT (UR) CULTURE INDICATED; CULTURE IF INDICATED CULTURE INDICATED; GLUCOSE,URINE NEG (NEG); KETONE, URINE NEG (NEG); MUCUS URINE FEW /lpf (OCC); NITRITE,URINE NEG (NEG); SQUAMOUS EPITHELIAL CELL URINE <1 /hpf (0-5); URINE COLOR YELLOW (YELLW/STRAW)
[2017-05-24 20:00] VITALS: BP 168/82; PULSE 91; RESP 22; TEMP 99.8; O2SAT 95
[2017-05-24] MEDS: PRAVASTATIN SOD 40 MG TAB PO SCH (20:53)
[2017-05-24] MEDS: traZODone HCL 50 MG TAB PO SCH (20:57)
[2017-05-25] VITALS: BP 124/70; PULSE 73; RESP 20; TEMP 98.8; O2SAT 97
[2017-05-25 04:21] VITALS: BP 131/74; PULSE 73; RESP 20; TEMP 98; O2SAT 96
[2017-05-25] MEDS: ALPRAZolam 1 MG TAB PO PRN ×2 (05:46→13:12)
[2017-05-25] MEDS: MORPHINE SULFATE 30 MG CONTROLLED RELEASE TAB PO SCH ×3 (05:46→21:10)
[2017-05-25 08:00] VITALS: BP 142/79; PULSE 84; RESP 20; TEMP 98.7; O2SAT 96
[2017-05-25] MEDS: DOCUSATE SODIUM 50 MG/SENNA 8.6 MG TAB PO SCH ×2 (09:00→21:08)
[2017-05-25] MEDS: FERROUS SULFATE 325 MG (65 MG ELEMENTAL IRON) TAB PO SCH (09:00)
--- NOTE | 2017-05-25 09:25 | HHI.PR ---
Subjective Remarks pt claims anxiety requesting more ativan will dc wellbutrin and bein paxil await PT eval Objective Vital Signs Date Time Temp Pulse Resp B/P (MAP) Pulse Ox O2 Delivery O2 Flow Rate FiO2 05/25/17 04:21 98.0 73 20 131/74 (93) 96 05/25/17 00:00 98.8 73 20 124/70 (88) 97 05/24/17 22:26 14 05/24/17 20:00 99.8 91 22 168/82 (110) 95 05/24/17 16:06 97.8 93 24 184/99 (127) 93 I/O 05/24/17 05/24/17 05/24/17 05/25/17 05/25/17 05/25/17 07:00 15:00 23:00 07:00 15:00 23:00 Intake Total 2560 ml 600 ml Output Total 1500 ml 600 ml Balance 1060 ml -600 ml 600 ml Intake Oral 320 ml 600 ml IV Total 1575 ml Packed Cells 400 ml Blood Product IV Normal Saline Flush 265 ml Output Urine Total 1500 ml 600 ml Result Diagram: 05/24/17 0650 05/24/17 0650 Objective Remarks GENERALfrail white female patient.claims anxiety SKIN: Warm and dry. HEAD: Normocephalic. EYES: No scleral icterus. No injection or drainage. NECK: Supple, trachea midline. No JVD or lymphadenopathy. CARDIOVASCULAR: Regular rate and rhythm without murmurs, gallops, or rubs. RESPIRATORY: Breath sounds equal bilaterally. No accessory muscle use. GASTROINTESTINAL: Abdomen soft, non-tender, nondistended. EXTREMITIES: No cyanosis, or edema.r hemiparesis present NEUROLOGICAL: Awake, alert, and oriented x 3. Non-focal. Medications and IVs Inpatient Medications Acetaminophen (Tylenol) 650 mg Q4H PRN PO TEMP > 100.4; Start 05/23/17 at 02: 00 Acetaminophen/ Hydrocodone Bitart ([place] 5-325 Mg) 1 tab Q6H PRN PO PAIN 1-10 ; Start 05/23/17 at 02:00 Alprazolam (Xanax) 2 mg Q8H PRN PO ANXIETY Last administered on 05/25/17t 05: 46; Start 05/23/17 at 02:00 Amlodipine Besylate (Norvasc) 10 mg DAILY PO Last administered on 05/24/17 10 :40; Start 05/23/17 at 09:00 Ascorbic Acid (Vitamin C) 500 mg BID PO Last administered on 05/24/17 20:54; Start 05/23/17 at 09:00 Bisacodyl (Dulcolax Supp) 10 mg DAILY PRN RECTAL SEVERE CONSITIPATION; Start 05/23/17 at 02:00 Bupropion HCl (Wellbutrin Sr) 300 mg DAILY PO Last administered on 05/24/17 10:39; Start 05/23/17 at 09:00 Calcium/Vitamin D (Oscal-D 250-125) 1 mg DAILY PO Last administered on 10:40; Start 05/23/17 at 09:00 Collagenase (Santyl Oint) 1 applic DAILY TOPICAL Last administered on 12:37; Start 05/23/17 at 16:45 Dicyclomine HCl (Bentyl) 10 mg BID PRN PO Bowel Management; Start 05/23/17 at 02:00 Docusate Sodium (Colace) 100 mg BID PRN PO CONSTIPATION; Start 05/23/17 at 02: 00 Ferrous Sulfate (Ferrous Sulfate) 325 mg DAILY PO Last administered on 10:39; Start 05/23/17 at 09:00 Furosemide (Lasix Inj) 20 mg ONCE ONCE IV PUSH Last administered on 19:30; Start 05/23/17 at 14:00; Stop 05/23/17 at 14:01; Status DC Gentamicin Sulfate (Gentamicin 0.1% Cream) 1 applic DAILY TOPICAL ; Start 05/23 at 09:00 Lactobacillus Acidophilus (Lactinex) 1 tab TIDAC PO Last administered on 18:12; Start 05/23/17 at 08:00 Lactulose (Lactulose Liq) 30 ml DAILY PRN PO SEVERE CONSITIPATION; Start 05/23 at 02:00 Lisinopril (Prinivil) 20 mg BID PO Last administered on 05/24/17 20:53; Start 05/23/17 at 09:00 Magnesium Hydroxide (Milk Of Magnesia Liq) 30 ml Q12H PRN PO Mild constipation ; Start 05/23/17 at 02:00 Morphine Sulfate (Oramorph Sr) 30 mg Q8HR PO Last administered on 05/25/17 05 :46; Start 05/23/17 at 06:00 Multivitamins (Theragran) 1 tab DAILY PO Last administered on 05/24/17 10:38 ; Start 05/23/17 at 09:00 Naloxone HCl (Narcan Inj) 0.4 mg UNSCH PRN IV PUSH SEE LABEL COMMENTS; Start 05/23/17 at 02:00 Ondansetron HCl (Zofran Inj) 4 mg Q6H PRN IVP NAUSEA OR VOMITING; Start at 02:00 Pantoprazole Sodium (Protonix) 40 mg DAILY PO Last administered on 05/24/17 10:38; Start 05/23/17 at 09:00 Potassium Chloride (KCl) 20 meq Q12HR PO Last administered on 05/24/17 20:54 ; Start 05/23/17 at 09:00 Pravastatin Sodium (Pravachol) 40 mg HS PO Last administered on 05/24/17 20: 53; Start 05/23/17 at 21:00 Senna/Docusate Sodium (Santa-Colace) 1 tab BID PO Last administered on 20:54; Start 05/23/17 at 09:00 Sennosides (Senokot) 17.2 mg Q12H PRN PO Moderate constipation; Start at 02:00 Sertraline HCl (Zoloft) 100 mg BID PO Last administered on 05/24/17 20:53; Start 05/23/17 at 09:00 Sodium Chloride 250 ml @ 15 mls/hr ONCE ONCE IV Last administered on 15:42; Start 05/23/17 at 12:00; Stop 05/24/17 at 04:39; Status DC Sodium Chloride (NS Flush) 2 ml BID IV FLUSH Last administered on 05/24/17 20 :53; Start 05/23/17 at 09:00 Trazodone HCl (Desyrel) 150 mg HS PO Last administered on 05/24/17 20:57; Start 05/23/17 at 21:00 Assessment and Plan Problem List: (1) Debility ICD Codes: R53.81 - Other malaise Plan: pt eval and rx with SNF placement (2) Anemia ICD Codes: D64.9 - Anemia, unspecified Status: Acute Plan: transfuse as needed Assessment and Plan debility anemia r hemiparesis pt eval and rx with snf placement add paxil for anxiety dc Farhat [place] DO May 25, 2017 09:25
[2017-05-25 09:30] LABS: AUTOMATED NEUTROPHIL # 2.7 TH/MM3 (1.8-7.7); BASOPHIL % 0.3 % (0.0-2.0); EOSINOPHIL % 0.3 % (0.0-4.0); HEMATOCRIT 36.8 % (35.0-46.0); HEMO FLAGS DIFF FINAL; LYMPH % 27.8 % (9.0-44.0); LYMPHOCYTE # 1.2 TH/MM3 (1.0-4.8); MEAN CELL VOLUME 78.7 FL (80.0-100.0); MEAN CORPUSCULAR HEMOGLOBIN 26.1 PG (27.0-34.0); MEAN CORPUSCULAR HGB CONC 33.1 % (32.0-36.0); MONO % 6.1 % (0.0-8.0); NEUT % 65.5 % (16.0-70.0); PLATELET COUNT 269 TH/MM3 (150-450); RED BLOOD COUNT 4.68 MIL/MM3 (4.00-5.30); RED CELL DISTRIBUTION WIDTH 17.4 % (11.6-17.2); WHITE BLOOD COUNT 4.2 TH/MM3 (4.0-11.0)
[2017-05-25] MEDS ORDERED: PARoxetine 25 MG CONTROLLED RELEASE TAB PO ONE (09:30)
[2017-05-25 09:50] LABS: ANION GAP 9 MEQ/L (5-15); BICARBONATE 28.1 MEQ/L (21.0-32.0); BLOOD UREA NITROGEN 13 MG/DL (7-18); CHLORIDE 97 MEQ/L (98-107); GLOMERULAR FILTRATION RATE 208 ML/MIN (>89); POTASSIUM 4.1 MEQ/L (3.5-5.1); SODIUM (NA) 134 MEQ/L (136-145)
[2017-05-25 09:52] LABS: ALT (GPT) 12 U/L (10-53); AST (GOT) 15 U/L (15-37)
[2017-05-25 09:54] LABS: ALKALINE PHOSPHATASE 86 U/L (45-117); TOTAL BILIRUBIN ADULT 0.4 MG/DL (0.2-1.0)
[2017-05-25] MEDS: LISINOPRIL 20 MG TAB PO SCH ×2 (10:47→21:10)
[2017-05-25] MEDS: ASCORBIC ACID 500 MG TAB PO SCH ×2 (10:47→21:10)
[2017-05-25] MEDS: CALCIUM/VITAMIN D 250 MG/125 U TAB PO SCH (10:48)
[2017-05-25] MEDS: LACTOBACILLUS ACIDOPHILUS TAB PO SCH ×3 (10:48→16:21)
[2017-05-25] MEDS: PANTOPRAZOLE SOD 40 MG DELAYED RELEASE TAB PO SCH (10:48)
[2017-05-25] MEDS: POTASSIUM CHLORIDE 20 MEQ CONTROLLED RELEASE TAB PO SCH ×2 (10:48→21:00)
[2017-05-25] MEDS: MULTIVITAMIN TAB PO SCH (10:48)
[2017-05-25] MEDS: SODIUM CHLORIDE 0.9% FLUSH 10 ML FLUSH IV FLUSH SCH ×2 (10:49→21:08)
[2017-05-25] MEDS: ACETAMINOPHEN/HYDROcodone 325 MG/5 MG TAB PO PRN (11:49)
[2017-05-25] MEDS: THYROID 30 MG TAB PO SCH (11:50)
[2017-05-25 12:00] VITALS: BP 139/82; PULSE 80; RESP 20; TEMP 99; O2SAT 95
[2017-05-25] MEDS: GENTAMICIN SULFATE 0.1% CREAM 15 GM TOPICAL SCH (13:13)
[2017-05-25] MEDS: COLLAGENASE OINT 30 GM TUBE TOPICAL SCH (13:16)
[2017-05-25 15:37] VITALS: BP 131/78; PULSE 80; RESP 20; TEMP 98.8; O2SAT 95
[2017-05-25] MEDS: PRAVASTATIN SOD 40 MG TAB PO SCH (21:08)
[2017-05-25] MEDS: traZODone HCL 50 MG TAB PO SCH (21:10)
[2017-05-25 22:30] VITALS: BP 145/85; PULSE 84; RESP 21; TEMP 98.9; O2SAT 97
[2017-05-26] MEDS: ALPRAZolam 1 MG TAB PO PRN ×2 (03:46→12:31)
[2017-05-26] MEDS: ACETAMINOPHEN/HYDROcodone 325 MG/5 MG TAB PO PRN ×2 (03:46→12:05)
[2017-05-26 04:00] VITALS: BP 159/77; PULSE 85; RESP 20; TEMP 98.3; O2SAT 95
[2017-05-26] MEDS: MORPHINE SULFATE 30 MG CONTROLLED RELEASE TAB PO SCH (06:24)
[2017-05-26 07:11] LABS: AUTOMATED NEUTROPHIL # 2.1 TH/MM3 (1.8-7.7); BASOPHIL % 0.2 % (0.0-2.0); EOSINOPHIL % 0.4 % (0.0-4.0); HEMATOCRIT 36.2 % (35.0-46.0); HEMO FLAGS DIFF FINAL; LYMPH % 28.2 % (9.0-44.0); LYMPHOCYTE # 0.9 TH/MM3 (1.0-4.8); MEAN CELL VOLUME 78.1 FL (80.0-100.0); MEAN CORPUSCULAR HEMOGLOBIN 25.5 PG (27.0-34.0); MEAN CORPUSCULAR HGB CONC 32.6 % (32.0-36.0); MONO % 5.6 % (0.0-8.0); NEUT % 65.6 % (16.0-70.0); PLATELET COUNT 274 TH/MM3 (150-450); RED BLOOD COUNT 4.64 MIL/MM3 (4.00-5.30); RED CELL DISTRIBUTION WIDTH 17.5 % (11.6-17.2); WHITE BLOOD COUNT 3.2 TH/MM3 (4.0-11.0)
[2017-05-26 07:36] LABS: ALT (GPT) 11 U/L (10-53); ANION GAP 5 MEQ/L (5-15); AST (GOT) 12 U/L (15-37); BICARBONATE 29.4 MEQ/L (21.0-32.0); BLOOD UREA NITROGEN 14 MG/DL (7-18); CHLORIDE 100 MEQ/L (98-107); GLOMERULAR FILTRATION RATE 223 ML/MIN (>89); POTASSIUM 4.3 MEQ/L (3.5-5.1); SODIUM (NA) 134 MEQ/L (136-145)
[2017-05-26 07:39] LABS: ALKALINE PHOSPHATASE 88 U/L (45-117); TOTAL BILIRUBIN ADULT 0.3 MG/DL (0.2-1.0)
[2017-05-26 07:54] LABS: WESTERGREN SEDIMENTATION RATE 40 mm/hr (0-30)
[2017-05-26 08:00] VITALS: BP 147/83; PULSE 74; RESP 18; TEMP 97.8; O2SAT 96
[2017-05-26] MEDS ORDERED: PARO25CR PO (08:43)
[2017-05-26] MEDS ORDERED: NORC5TAB PO (08:43)
[2017-05-26] MEDS ORDERED: ARMO30TA PO (08:43)
[2017-05-26] MEDS ORDERED: FLUC200T2 PO (08:43)
[2017-05-26] MEDS ORDERED: MORP1TAB25 PO (08:43)
[2017-05-26] MEDS ORDERED: XANA2TAB2 PO (08:43)
--- NOTE | 2017-05-26 08:50 | HHI.DS ---
Discharge Summary Admission Date May 24, 2017 at 09:09 Discharge Date: May 26, 2017 Admitting Diagnosis anemia (1) Anemia ICD Codes: D64.9 - Anemia, unspecified Status: Acute (2) Debility ICD Codes: R53.81 - Other malaise (3) Depression ICD Codes: F32.9 - Major depressive disorder, single episode, unspecified (4) HLD (hyperlipidemia) ICD Codes: E78.5 - Hyperlipidemia, unspecified Brief History 56-year-old female sent to the emergency department from retirement for evaluation and possible transfusion. Patient reportedly had a hemoglobin of 6.8 at the nursing facility prior to being transferred to the emergency department. Patient has had stroke and is bedbound due to right-sided hemiplegia. Patient denies any black or tarry stools. Patient is on no blood thinning agents. Patient was also admitted in April for anemia and had work per GI and hematology. Recommendation from hematology is to transfuse as needed. CBC/BMP: 05/26/17 0615 05/26/17 0615 Significant Findings Laboratory Tests Test 05/24/17 06:50 05/24/17 13:30 05/25/17 08:59 05/26/17 06:15 Mean Corpuscular Volume 77.0 FL (80.0-100.0) 78.7 FL (80.0-100.0) 78.1 FL (80.0-100.0) Mean Corpuscular Hemoglobin 25.3 PG (27.0-34.0) 26.1 PG (27.0-34.0) 25.5 PG (27.0-34.0) Neutrophils (%) (Auto) 73.2 % (16.0-70.0) Lymphocytes # (Auto) 0.9 TH/MM3 (1.0-4.8) 0.9 TH/MM3 (1.0-4.8) Creatinine 0.36 MG/DL (0.50-1.00) 0.33 MG/DL (0.50-1.00) 0.31 MG/DL (0.50-1.00) Albumin 2.2 GM/DL (3.4-5.0) 2.1 GM/DL (3.4-5.0) 2.1 GM/DL (3.4-5.0) Alanine Aminotransferase (ALT/SGPT) 9 U/L (10-53) Sodium Level 135 MEQ/L (136-145) 134 MEQ/L (136-145) 134 MEQ/L (136-145) Free Triiodothyronine (T3) pg/dL 1.74 PG/ML (2.18-3.98) Urine Turbidity HAZY (CLEAR) Urine Protein 100 mg/dL (NEG-TRACE) Urine Occult Blood MOD (NEG) Urine Leukocyte Esterase LARGE (NEG) Urine RBC 59 /hpf (0-3) Urine WBC 68 /hpf (0-5) Urine Bacteria RARE /hpf (NONE) Urine Mucus FEW /lpf (OCC) Urine Yeast (Budding) FEW (NONE) Red Cell Distribution Width 17.4 % (11.6-17.2) 17.5 % (11.6-17.2) Random Glucose 69 MG/DL (74-106) Chloride Level 97 MEQ/L (98-107) White Blood Count 3.2 TH/MM3 (4.0-11.0) Erythrocyte Sedimentation Rate 40 mm/hr (0-30) Aspartate Amino Transf (AST/SGOT) 12 U/L (15-37) PE at Discharge GENERAL: alert and cooperative SKIN: Warm and dry. stage 14 ulcer on coccyx HEAD: Normocephalic. EYES: No scleral icterus. No injection or drainage. NECK: Supple, trachea midline. No JVD or lymphadenopathy. CARDIOVASCULAR: Regular rate and rhythm without murmurs, gallops, or rubs. RESPIRATORY: Breath sounds equal bilaterally. No accessory muscle use. GASTROINTESTINAL: Abdomen soft, non-tender, nondistended. MUSCULOSKELETAL: No cyanosis, or edema. Right sidedweakness BACK: Nontender without obvious deformity. No CVA tenderness. Hospital Course 56-year-old female sent to the emergency department from retirement for evaluation and possible transfusion. Patient reportedly had a hemoglobin of 6.8 at the nursing facility prior to being transferred to the emergency department. Patient has had stroke and is bedbound due to right-sided hemiplegia. Patient denies any black or tarry stools. Patient is on no blood thinning agents. Patient was also admitted in April for anemia and had work per GI and hematology. Recommendation from hematology is to transfuse as needed. During her hospital course patient was transfused 2 units of PRBC for a HGB of 7.1 with todays HGB at 11.8. Also complained of increased anxiety during her stay and Wellbutrin and Zoloft discontinued per Dr. Ocampo and Paxil added. Also will be discharged on fluconazole for duncan in Urine. Order to replace catheter prior to discharge to rehab. Patient is cleared for discharge to [facility] rehab and will continue to be followed by Dr. Ocampo Pt Condition on Discharge: Fair Discharge Disposition: Discharge to SNF Discharge Instructions DIET: Follow Instructions for: As Tolerated, No Restrictions Activities you can perform: Regular-No Restrictions Follow up Referrals: PCP Follow-up @ [facility] New Orders: BASIC METABOLIC PROF - 2 Days CBC NO DIFF - 2 Days @ [facility] New Medications: Fluconazole (Fluconazole) 200 Mg Tab 200 MG PO DAILY for Infection, #7 TAB 0 Refills Paroxetine ER (Paxil CR) 25 Mg Tab 25 MG PO DAILY for Depression Control, #30 TAB 0 Refills Thyroid ([place] Thyroid) 30 Mg Tab 30 MG PO DAILY for Electrolyte Replacement for 30 Days, #30 TAB Continued Medications: Alprazolam (Xanax) 2 Mg Tab 2 MG PO Q8H PRN for ANXIETY for 7 Days, #21 TAB 0 Refills (This prescription has been renewed) Amlodipine (Norvasc) 10 Mg Tab 10 MG PO DAILY for Blood Pressure Management, #30 TAB 0 Refills Ascorbic Acid (Ascorbic Acid) 500 Mg Tab 500 MG PO BID, TAB Calcium Carbonate-Cholecalciferol (Calcium 600 with Vitamin D) 600-400 mg-Unit Tab 1 TAB PO DAILY for Calcium Supplement, TAB 0 Refills Dicyclomine (Dicyclomine) 10 Mg Cap 10 MG PO BID PRN for Bowel Management, CAP 0 Refills Docusate Sodium (Colace) 100 Mg Capsule 1 TAB PO BID PRN for CONSTIPATION Ferrous Sulfate (Ferrous Sulfate) 325 Mg (65 Mg Iron) Tablet 325 MG PO DAILY for Nutritional Supplement, #30 TAB 0 Refills Gentamicin Topical (Gentamicin Topical) 0.1% Cream 1 APPLIC TOPICAL DAILY for Infection, #15 GM 0 Refills Apply to affected area(s) Hydrocodone-Acetaminophen ([place]) 5 Mg-325 Mg Tab 1 TAB PO Q6H PRN for PAIN for 7 Days, #28 TAB 0 Refills (This prescription has been renewed) Lactobacillus Acidophilus (Lactobacillus Acidophilus) 1 Billion Cell Tab 1 TAB PO TIDAC for Nutritional Supplement, #30 TAB 0 Refills Lisinopril (Lisinopril) 20 Mg Tab 20 MG PO BID, #30 TAB 0 Refills Morphine ER (Morphine ER) 30 Mg Tab 30 MG PO Q8H for Pain Management for 7 Days, #21 TAB 0 Refills (This prescription has been renewed) Multiple Vitamin (Multiple Vitamin) 1 Tab 1 TAB PO DAILY for Nutritional Supplement, TAB 0 Refills Pantoprazole (Protonix) 40 Mg Tab 40 MG PO DAILY for Reflux, #30 TAB 0 Refills Potassium Chloride Microencaps (Klor-Con M20) 20 Meq Tab 20 MEQ PO Q12HR for Electrolyte Replacement, #60 TAB 0 Refills Simvastatin (Zocor) 20 Mg Tab 20 MG PO DAILY for Cholesterol Management, #30 TAB 0 Refills Trazodone (Trazodone) 150 Mg Tablet 150 MG PO HS for Control Depression, #30 TAB 0 Refills Discontinued Medications: Bupropion HCl ER 24 HR (Wellbutrin Xl 24 HR) 300 Mg Tab 300 MG PO DAILY for Control Depression, TAB 0 Refills Sertraline (Zoloft) 100 Mg Tab 100 MG PO BID, #30 TAB 0 Refills [place] Frias May 26, 2017 08:50
[2017-05-26] MEDS: CALCIUM/VITAMIN D 250 MG/125 U TAB PO SCH (08:54)
[2017-05-26] MEDS: PANTOPRAZOLE SOD 40 MG DELAYED RELEASE TAB PO SCH (08:54)
[2017-05-26] MEDS: LACTOBACILLUS ACIDOPHILUS TAB PO SCH ×2 (08:55→12:04)
[2017-05-26] MEDS: LISINOPRIL 20 MG TAB PO SCH (08:55)
[2017-05-26] MEDS: DOCUSATE SODIUM 50 MG/SENNA 8.6 MG TAB PO SCH (08:55)
[2017-05-26] MEDS: MULTIVITAMIN TAB PO SCH (08:55)
[2017-05-26] MEDS: FERROUS SULFATE 325 MG (65 MG ELEMENTAL IRON) TAB PO SCH (08:55)
[2017-05-26] MEDS: POTASSIUM CHLORIDE 20 MEQ CONTROLLED RELEASE TAB PO SCH (08:55)
[2017-05-26] MEDS: ASCORBIC ACID 500 MG TAB PO SCH (08:55)
[2017-05-26] MEDS: SODIUM CHLORIDE 0.9% FLUSH 10 ML FLUSH IV FLUSH SCH (08:55)
[2017-05-26] MEDS: COLLAGENASE OINT 30 GM TUBE TOPICAL SCH (08:56)
[2017-05-26] MEDS: GENTAMICIN SULFATE 0.1% CREAM 15 GM TOPICAL SCH (08:56)
[2017-05-26] MEDS: THYROID 30 MG TAB PO SCH (09:52)
[2017-05-26 12:00] VITALS: BP 114/65; PULSE 78; RESP 18; TEMP 97.8; O2SAT 96
[2017-05-26 13:00] VITALS: RESP 16
[2017-06-02] MEDS ORDERED: CEROTAB PO (02:04)
[2017-06-02] MEDS ORDERED: NITR1CAP36 PO (02:04)
[2017-06-02] MEDS ORDERED: CITRSOL4 PO (02:04)
[2017-06-02] MEDS ORDERED: TYLE325T PO (02:04)
[2017-06-02] MEDS ORDERED: MILKSUS PO (02:04)
[2017-06-02] MEDS ORDERED: DULC10SU3 RECTAL (02:04)
[2017-06-02] MEDS ORDERED: ARMO30TA PO (04:37)
[2017-06-02] MEDS ORDERED: APLI5INJ2 ID (04:37)
[2017-06-02] MEDS ORDERED: CEFD300C PO (04:58)
[2017-06-02] MEDS ORDERED: AZIT250T3 PO (04:58)
== END 2017-05-26 13:34 | DRG 811 ==
LOC: NEPC 23:21 → NEDA 05-23 01:51 → NEPHCDU 05-23 02:42 → OBSVTOIN 05-24 09:09 → N04B 05-25 20:00
PROVIDERS: ADMIT Family Medicine; ATTEND Family Medicine
PROC: 30233N1 Transfusion of Nonautologous Red Blood Cells into Peripheral Vein, Percutaneous Approach (ICD-10-PCS; principal; 2017-05-23)
DX: D64.9 Anemia, unspecified (principal); L89.154 Pressure ulcer of sacral region, stage 4; E80.20 Unspecified porphyria; I69.351 Hemiplegia and hemiparesis following cerebral infarction affecting right dominant side; L97.319 Non-pressure chronic ulcer of right ankle with unspecified severity; I25.2 Old myocardial infarction; I10 Essential (primary) hypertension; B37.49 Other urogenital candidiasis; F32.9 Major depressive disorder, single episode, unspecified; E78.5 Hyperlipidemia, unspecified; K21.9 Gastro-esophageal reflux disease without esophagitis; L93.0 Discoid lupus erythematosus; Z87.891 Personal history of nicotine dependence; R53.1 Weakness; Z74.01 Bed confinement status
CPT/HCPCS: 36430; 80053; 81001; 82607; 82728; 82746; 83010; 83540; 83550; 84481; 85025; 85027; 85044; 85610; 85652; 85730; 86850; 86900; 86901; 86920; 86922; 87086; 99285; G0378; J1940; J7050; P9016